=== PATIENT | female | born 1985 | race Caucasian/White ===

== ENCOUNTER 2022-09-12 20:01 | Emergency (ER) | payer OTHER ==
[~2022-09-12] VITALS: Ht 165.1 cm; Wt 104.8 kg
[2022-09-12 20:09] VITALS: BP 125/64
--- NOTE | 2022-09-12 21:24 | NUR ---
PT TO 6
[2022-09-12 21:28] LABS: APPEARANCE,URINE CLEAR (CLEAR); BLOOD, URINE NEGATIVE (NEGATIVE); COLOR,URINE YELLOW (YELLOW); UGLUCOSE NEGATIVE (NEGATIVE)
[2022-09-12 21:29] LABS: BILIRUBIN,URINE NEGATIVE (NEGATIVE); LEUKOCYTE ESTERASE ,URINE NEGATIVE (NEGATIVE); NITRITE, URINE NEGATIVE (NEGATIVE)
--- NOTE | 2022-09-12 21:30 | NUR ---
Patient being evaluated by physician at bedside.
--- NOTE | 2022-09-12 21:40 | NUR ---
37 Y/O F PRESENTS WITH OF 35WKS AND CHEST PAIN WITH SOB X 1MONTH 9/10 PAIN. PT STATED SHE IS ON PRENATALS AND SEEN PRIMARY DOCTOR 2WKS AGO. PT STATED SHE HAS INTERMITTENT SPOTTING. PT DENIES NVD, SKIN INTACT AND A&OX4. PMH-PT DENIES ALLERGIES-EGG
--- NOTE | 2022-09-12 21:50 | NUR ---
XRAY AT BEDSIDE
--- NOTE | 2022-09-12 22:10 | NUR ---
PT AMBULATORY TO RESTROOM
--- NOTE | 2022-09-12 22:14 | NUR ---
Patient discharged with v/s stable. Written and verbal after care instructions given and explained. Patient verbalized understanding. Ambulatory with steady gait. All questions addressed prior to discharge. Advised to follow up with PMD.
--- NOTE | 2022-09-12 23:55 | NUR ---
The patient's care was reviewed and supervised by Sandra Bennett RN.
== END 2022-09-12 22:14 | disposition home or self-care (01) ==
LOC: MED 20:01
DX: O99.513 Diseases of the respiratory system complicating pregnancy, third trimester (principal); R06.02 Shortness of breath; Z3A.35 35 weeks gestation of pregnancy; Z91.012 Allergy to eggs
CPT/HCPCS: 71045; 81003; 81025; 99284; Q0092